=== PATIENT | male | born 2000 | race Caucasian/White ===

== ENCOUNTER 2025-03-13 14:27 | Emergency (ER) | payer MEDICARE, BC, MEDICAID, SELFPAY ==
[2025-03-13 14:31] VITALS: BP 147/93
--- NOTE | 2025-03-13 14:42 | ED.GENMED ---
History of Present Illness
General
Chief Complaint: Cough
Time Seen by Provider: 03/13/25 14:42
History of Present Illness
History of Present Illness:
TIME OF INITIAL EVALUATION
- 2:45 PM
REVIEW OF OLD RECORDS
- I reviewed records. The patient was seen in the emergency room 2008 related to a facial injury. The patient does have a history of autism and bipolar disorder. Of note, the patient did screen positive for suicide risk in triage.
Note:
CHIEF COMPLAINT(S)
- Coughing up blood (hemoptysis)
- Weakness and near syncope
- Difficulty swallowing
HISTORY OF PRESENT ILLNESS
The patient is a 24-year-old male who presented with complaints of hemoptysis this morning. He reports waking up with a severe cough and subsequently noticed blood. The patient describes a history of coughing over the past week. An x-ray of the
chest has not been performed recently; however, an x-ray for his wrist was mentioned due to a work-related injury that occurred a few weeks ago, for which he is wearing a wrist splint. He states that he has experienced sensations of nausea and has
avoided vomiting by limiting food intake, notably finding it difficult to swallow both food and saliva. Additionally, the patient reports episodes of feeling weak, almost fainting, and experiencing altered vision and a mixed sensation of hot and
cold. He is also experiencing shortness of breath while sitting. The sensation of being simultaneously hot and cold is described as unusual and troubling. The patient denies smoking but acknowledges having tried smoking in the past.
The patient is undergoing changes in his mental health medication, transitioning from escitalopram to sertraline, which might affect his suicidal ideation. He experiences fluctuating feelings but states that these feelings are not newly acute,
although they occasionally worsen. He is currently under psychiatric care, including a therapist and psychiatrist, and has a known history of obsessive-compulsive disorder since childhood, as well as past behavioral issues warranting camp-based
interventions. The patient mentions a recent diet that includes lobster tails, raising questions about food poisoning, but his symptoms were present before this meal, making it an unlikely cause.
PHYSICAL EXAM
- General: Well appearing in no distress, elevated BMI
- HEENT: Moist oral mucosa
- Cardiovascular: No murmurs, normal heart rate, regular rhythm, No chest wall tenderness
- Pulmonary: No respiratory distress, breath sounds are clear and equal, there is no wheeze
- Abdomen: Soft with no peritoneal signs, no tenderness
- Neurologic: Excellent strength all extremities, no coordination deficits
- Psychiatric: Appropriate mental status, normal insight and judgement, he is pleasant
- Extremities: Splint noted to right wrist
- Skin: No rash, no lesions
PLAN
- Order a chest x-ray to evaluate for potential pulmonary causes of hemoptysis.
- Obtain blood work to further investigate underlying conditions contributing to the present symptoms.
- Administer IV fluids to address the patients weakness and prevent syncope.
- Arrange for a link trainer maintenance worker to speak with the patient to offer additional support and evaluate mental health status.
- Monitor the patients response to the current medication change.
DIFFERENTIAL DIAGNOSIS
The Differential Diagnosis includes, in no particular order and is not limited to:
- Respiratory infection (viral or bacterial)
- Gastroesophageal reflux disease (GERD) causing cough
- Upper airway inflammation or infection
- Paroxysmal nocturnal hemoglobinuria
- Pulmonary embolism
- Tuberculosis
- Anxiety-related respiratory issues
- Medication side effects (related to SSRIs)
- Mental health-related somatic symptoms
- Esophageal rupture or irritation
RADIOLOGY
- Chest x-ray shows no abnormality
EKG
- Sinus 76, no acute ST abnormality, normal axis
LABS
- White count minimally elevated 12.4, chemistries unremarkable
UPDATE
-At 2:53 PM, I spoke to crisis and informed them of the consult.
SUMMARY OF ENCOUNTER
The 24-year-old male patient presented with hemoptysis, accompanied by a severe cough, weakness, near syncope, difficulty swallowing, and a sensation of being hot and cold. He reported these symptoms persisting over the past week. The patient is
transitioning mental health medications from escitalopram to sertraline and has a history of obsessive-compulsive disorder and past behavioral issues. A chest x-ray was performed, which showed no significant abnormalities such as pneumonia or
bronchitis that required immediate intervention. Despite a slight elevation in white blood cells, there was no evidence pointing to a severe infection or pneumonia. The patients condition does not necessitate antibiotic treatment at this time. IV
fluids were administered to address his weakness, and a link trainer maintenance worker talked to the patient regarding his mental health concerns. It was suggested that the coughing might resolve with time and that environmental factors, such as being outside, could
be beneficial.
DISPOSITION
Discharge.
ASSESSMENT
Likely viral bronchitis which is expected to improve with time, given the absence of alarming findings on chest x-ray and labs.
PLAN
The patient is advised to follow up with a antenna specialist if symptoms persist. The expectation is that symptoms will resolve naturally.
INDEPENDENT REVIEW OF LABS AND INTERPRETATION OF TESTS
My independent review of the complete blood count (CBC) shows a slight increase in white blood cells, suggestive of a mild reactive process but not indicative of a significant bacterial infection. My independent interpretation of the chest x-ray
shows no signs of pneumonia or any acute pulmonary process.
PATIENT EDUCATION AND COUNSELING
The patient was informed about the likely viral nature of his symptoms and reassured about the absence of serious findings. Strategies for symptom management, including hydration and potential exposure to outdoor air, were discussed. Further
attention was directed to mental health support given the ongoing medication transition.
FOLLOW-UP INSTRUCTIONS
Please follow up with a sap payroll consultant if symptoms do not improve.
MEDICATION RECONCILIATION
IV fluids were provided during the visit. The patient is transitioning from escitalopram to sertraline under psychiatric guidance.
MEDICAL DECISION MAKING
- Complexity of Data Reviewed: Chronic conditions affecting care include a history of obsessive-compulsive disorder with ongoing mental health treatment. Differential diagnosis includes respiratory infection (viral or bacterial), anxiety-related
respiratory issues, and medication side effects.
- Data:
Category 1
- External records reviewed: Laboratory results showed a slight elevation in white blood cells.
- Providers conducted an independent interpretation of the chest x-ray, which showed no acute abnormalities.
- Risk: Prescription medication management is mainly ongoing stabilization of psychiatric medication with monitored transitions from escitalopram to sertraline. The risk of complications is low from the current symptomatology.
DIAGNOSIS
- Viral bronchitis: J20.9
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
Phy Exam
Physical Exam
Physical Exam:
See HPI
Course
Orders/Labs/Results
Orders:
Orders
03/13/25 14:38
Crisis Consult Urgent
Reason for Consult: SI w/o intent to act on ideations
03/13/25 15:01
Electrocardiogram (*1) Urgent
Reason for Study: Syncope
EKG- Treatment ONCE
0.9% Sodium Chloride 1000 ml [Nss] 1,000 ml IV BOLUS
CR Chest - 2 Views Urgent
Comment:
Reason For Exam: hemoptysis
03/13/25 15:57
Basic Metabolic Panel Urgent
Complete Blood Count/No Diff Urgent
Abnormal Lab Results
03/13/25
15:57
WBC 12.4 H 10^3/uL
(4.8-10.8)
Chloride 108 H mmol/L
(98-107)
Glucose 112 H mg/dl
(70-99)
03/13/25 15:57
03/13/25 15:57
Vital Signs
Initial and Last Documented VS:
Initial Vital Signs
Temp Pulse Resp BP Pulse Ox
37.6 C 82 18 147/93 98
03/13/25 14:31 03/13/25 14:31 03/13/25 14:31 03/13/25 14:31 03/13/25 14:31
Last Documented Vital Signs
Temp Pulse Resp BP Pulse Ox
37.4 C 82 20 125/81 96
03/13/25 15:50 03/13/25 15:50 03/13/25 15:50 03/13/25 15:50 03/13/25 15:50
*Pulse Oximetry
SaO2: 98
Oxygen Mode of Delivery: Room air
Patient hypoxic: no
*Critical Care Note
Total Time (30-74mins, 75-104mins- exclusive of procedures): Not Applicable
ED Attending Note
-
Portions of this chart may have been created with voice recognition software.� Occasional wrong word or��sound alike� substitutions may have occurred due to the inherent limitations of voice recognition software.
Discharge Plan
Departure
Referrals:
Niels Hu IV, MD [Family Provider, [facility]]
Interventions
Interventions:
*Risk Screen - Suicide Last Done: 03/13/25 14:31
*General Assessment Last Done: 03/13/25 14:31
*Neglect/Abuse Screening Last Done: 03/13/25 14:31
ED- Pulmonary Assessment Last Done: 03/13/25 16:17
Discharge Date and Time
Print Language: WALLISIAN
--- NOTE | 2025-03-13 14:59 | EDRN ---
this HOTEL OR MOTEL RECEPTIONIST assumed care of this pt at this time at the start of this ER RNs shift.
pt is ordered crisis consult by Dr Dickinson for 'SI w/o intent to act on ideations'
Per ER Dr Andrea verbal order to this HOTEL OR MOTEL RECEPTIONIST, the pt has a history of autism and has multiple family members present at his bedside. Per ER Dr Andrea verbal order to this HOTEL OR MOTEL RECEPTIONIST, the pt does NOT need to be changed into blue paper
scrubs and does NOT need a 1:1 observation by ER staff. The ER claims assistant was notified of above
A antichecking iron worker is currently present at the pts bedside speaking with this pt and family
[2025-03-13 15:49] VITALS: BMI 46.4
[2025-03-13 15:50] VITALS: BP 125/81
[2025-03-13] MEDS: NSS 1000 IV (15:59)
[2025-03-13 16:07] LABS: Hematocrit 44.5 % (39.0-52.0); Hemoglobin 15.5 g/dL (13.0-18.0); Mean Corp Hgb Conc. 34.8 g/dL (33.0-37.0); Mean Corpuscular Volume 83.8 fL (80.0-94.0); Platelet Count 272 10^3/uL (130-400); Red Cell Dist. Width 12.2 % (11.5-14.5)
[2025-03-13 16:21] LABS: Blood Urea Nitrogen 13 mg/dl (9-20); Calcium 9.9 mg/dl (8.4-10.2); Carbon Dioxide 23 mmol/L (22-30); Chloride 108 mmol/L (98-107); Estimated Creatinine Clearance > 125 ml/min; Glucose 112 mg/dl (70-99); Potassium 4.2 mmol/L (3.5-5.1); Sodium 139 mmol/L (135-145); eGFR > 60.00
[2025-03-13 17:24] VITALS: BP 123/64
== END 2025-03-13 17:26 | disposition home or self-care (01) ==
LOC: EMR 14:27
PROVIDERS: EMERGENCY PHYSICIAN Emergency Medicine; FAMILY PHYSICIAN Family Medicine
DX: R04.2 Hemoptysis (principal); R53.1 Weakness; J20.8 Acute bronchitis due to other specified organisms; B97.89 Other viral agents as the cause of diseases classified elsewhere; F43.25 Adjustment disorder with mixed disturbance of emotions and conduct; F42.9 Obsessive-compulsive disorder, unspecified
CPT/HCPCS: 99285; 96360; 71046; 80048; 85027; 93005